=== PATIENT | female | born 1960 | race Caucasian/White ===

== ENCOUNTER → 2018-02-12 | Outpatient (CLI) | payer MEDICAID | END | disposition home or self-care (01) | LOC: CFH 08:01 | PROVIDERS: ATTEND Nurse Practitioner | DX: M47.26 Other spondylosis with radiculopathy, lumbar region (principal); M51.16 Intervertebral disc disorders with radiculopathy, lumbar region; M48.061 Spinal stenosis, lumbar region without neurogenic claudication; R20.0 Anesthesia of skin | CPT/HCPCS: 72110; 72148 ==